=== PATIENT | female | born 1985 | race Caucasian/White ===

== ENCOUNTER 2022-06-18 22:42 | Emergency (ER) | payer MEDICAID ==
[~2022-06-18] VITALS: Ht 185.4 cm; Wt 136.1 kg
[2022-06-18 23:15] VITALS: BP_SYST 156
--- NOTE | 2022-06-18 23:20 | NUR ---
Patient triaged and placed in waiting room. VS checked and patient appears in no acute distress at this time. Accompanied by self, awaiting available bed, and MD notified of need for MSE.
--- NOTE | 2022-06-18 23:30 | NUR ---
HARSHIL Marks at examining patient.
[2022-06-18] MEDS ORDERED: CLIN-142 PO (23:40)
[2022-06-18 23:55] VITALS: BP_SYST 145
--- NOTE | 2022-06-18 23:55 | NUR ---
Patient given written and verbal discharge instructions and verbalizes understanding. ER MD discussed with patient the care provided. Patient in stable condition. ID arm band removed. Rx of Clindamycin Hcl given. Patient educated on pain management and to follow up with PMD. Pain Scale 0/10. Opportunity for questions provided and answered.
== END 2022-06-18 23:55 | disposition home or self-care (01) ==
LOC: SED 22:42
DX: L03.116 Cellulitis of left lower limb (principal); Z79.899 Other long term (current) drug therapy
CPT/HCPCS: 99283

== ENCOUNTER 2022-08-03 13:50 | Emergency (ER) | payer MEDICAID ==
[~2022-08-03] VITALS: Ht 185.4 cm; Wt 136.1 kg
[~2022-08-03 13:50] MED LIST: CLIN-142 PO
[2022-08-03 14:03] VITALS: BP_SYST 144
[2022-08-03 15:24] VITALS: BP_SYST 143
[2022-08-03] MEDS ORDERED: CLINDAMYCIN 600 mg/50mL D5W 50 ML IV ONE (15:45)
[2022-08-03] MEDS ORDERED: KETOROLAC TROMETHAMINE 30 MG VIAL IVP ONE (15:45)
[2022-08-03] MEDS ORDERED: NACL 0.9% 1,000 ML IV ONE (16:30)
[2022-08-03] MEDS ORDERED: CLIN-142 PO (17:09)
[2022-08-03] MEDS ORDERED: NAPR-1172 PO (17:09)
[2022-08-03] MEDS ORDERED: CLINDAMYCIN HCL 150 MG CAPSULE PO ONE (17:15)
== END 2022-08-03 17:30 | disposition home or self-care (01) ==
LOC: SED 13:50
DX: L03.119 Cellulitis of unspecified part of limb (principal); F12.90 Cannabis use, unspecified, uncomplicated; F17.210 Nicotine dependence, cigarettes, uncomplicated; Z88.0 Allergy status to penicillin; Z79.899 Other long term (current) drug therapy
CPT/HCPCS: 99283; 96360; J7030